=== PATIENT | female | born 1995 | race African-American/Black ===

== ENCOUNTER 2018-10-05 18:44 | Emergency (ER) | payer OTHER ==
[2018-10-05 18:53] VITALS: RESP 18
[2018-10-05] MEDS ORDERED: SODIUM CHLORIDE 0.9% 1,000 ML IV ONE (18:55)
--- NOTE | 2018-10-05 19:10 | ED ---
Female Urogenital HPI - General Chief complaint: Vaginal Bleeding Stated complaint: early /vaginal bleeding Time Seen by Provider: 10/05/18 18:54 Source: patient Mode of arrival: ambulatory Limitations: no limitations - History of Present Illness Initial comments: 22-year-old female denies past medical history presents today for chief complaint of vaginal bleeding in . Patient is . Patient states her last menstrual period was 08/19/2018. Patient states that she had multiple at home positive test. Patient states she began experiencing vaginal bleeding about hour prior to arrival. Patient states she has had mild cramping like a menstruation. No significant abdominal pain. She states her flow is about as heavy as menstruation. She denies any significant heavy bleeding. Patient denies any chest pain dyspnea, cold intolerance or heart palpitations. She denies vaginal discharge. Chills night sweats. Upon arrival patient appears well, no acute distress. Appearing well. VS WNL. - Related Data Home Medications Medication Instructions Recorded Confirmed Cephalexin [Keflex] 500 mg PO BID 10/05/18 10/05/18 Allergies Allergy/AdvReac Type Severity Reaction Status Date / Time No Known Allergies Allergy Verified 10/05/18 20:07 Review of Systems ROS Statement: Those systems with pertinent positive or pertinent negative responses have been documented in the HPI. ROS Other: All systems not noted in ROS Statement are negative. Past Medical History Past Medical History: No Reported History History of Any Multi-Drug Resistant Organisms: None Reported Past Surgical History: No Surgical Hx Reported Past Psychological History: No Psychological Hx Reported Smoking Status: Never smoker Past Alcohol Use History: None Reported Past Drug Use History: None Reported General Exam - General Exam Comments Initial Comments: General: The patient is awake and alert, in no distress, and does not appear acutely ill. Eye: Pupils are equal, round and reactive to light, extra-ocular movements are intact. No nystagmus. There is normal conjunctiva bilaterally. No signs of icterus. Ears, nose, mouth and throat: There are moist mucous membranes and no oral lesi ons. Neck: The neck is supple, there is no tenderness or JVD. Cardiovascular: There is a regular rate and rhythm. No murmur, rub or gallop is appreciated. Respiratory: Lungs are clear to auscultation, respirations are non-labored, breath sounds are equal. No wheezes, stridor, rales, or rhonchi. Gastrointestinal: Soft, non-distended, non-tender abdomen without masses or organomegaly noted. There is no rebound or guarding present. No CVA tenderness. Bowel sounds are unremarkable. Pelvic: [place] and well rugated vaginal mucosa. Normal female hair pattern with no external lesions. Cervical eyes closed. Vaginal vault, dark red, small clots present. No adnexal or cervical motion tenderness. Musculoskeletal: Normal ROM, no tenderness. Strength 5/5. Sensation intact. Pulses equal bilaterally 2+. Neurological: A&O x 3. CN II-XII intact, There are no obvious motor or sensory deficits. Coordination appears grossly intact. Speech is normal. Skin: Skin is warm and dry and no rashes or lesions are noted. Psychiatric: Cooperative, appropriate mood & affect, normal judgment. Limitations: no limitations Course Vital Signs 10/05/18 10/05/18 18:51 21:13 Temperature 98.4 F 97.9 F Pulse Rate 83 78 Respiratory 18 18 Rate Blood Pressure 133/77 138/70 O2 Sat by Pulse 99 Oximetry Medical Decision Making - Medical Decision Making Well-appearing 22-year-old female. Patient had a positive test 3 days prior. Last. As mentioned previously. Patient hCG serum around 1000. Consistent with early dependency however given the amount of vaginal bleeding I have high suspicion for spontaneous . Patient is no adnexal or cervical motion tenderness. Patient denies any right-sided or left-sided tenderness. She states she feels [facility]. Cramping. Patient appears comfortable no signs of acute distress. Some revealed no viable intrauterine . There was thickened endometrium. Patient was given prescriptions for serial hCGs to trend downward for possibility of ectopic as we cannot rule out given no ja dence of viable intrauterine with a hCG elevation. I discussed clinical suspicion with patient as well as concern for ectopic and the reasoning behind serial hCG. Although I do have high clinical suspicion of spontaneous . Patient does not require RHogam. Her discussed the case obtain provider, he is agreeable patient plan of care as well as discharge. Patient was given [employer] follow-up. Return parameters including immediate return for increasing pain, persistent bleeding or any other concerning signs or symptoms were discussed with patient at length verbalized understanding. Patient discharged appearing well hemodynamically stable. - Lab Data Result diagrams: 10/05/18 19:24 10/05/18 19:24 Lab Results 10/05/18 10/05/18 10/05/18 Range/Units 19:24 19:24 19:24 WBC 7.2 (3.8-10.6) k/uL RBC 4.23 (3.80-5.40) m/uL Hgb 13.3 (11.4-16.0) gm/dL Hct 40.4 (34.0-46.0) % MCV 95.5 (80.0-100.0) fL MCH 31.4 (25.0-35.0) pg MCHC 32.8 (31.0-37.0) g/dL RDW 13.3 (11.5-15.5) % Plt Count 360 (150-450) k/uL Neutrophils % 51 % Lymphocytes % 39 % Monocytes % 6 % Eosinophils % 2 % Basophils % 0 % Neutrophils # 3.6 (1.3-7.7) k/uL Lymphocytes # 2.8 (1.0-4.8) k/uL Monocytes # 0.4 (0-1.0) k/uL Eosinophils # 0.1 (0-0.7) k/uL Basophils # 0.0 (0-0.2) k/uL Sodium 139 (137-145) mmol/L Potassium 4.2 (3.5-5.1) mmol/L Chloride 105 (98-107) mmol/L Carbon Dioxide 24 (22-30) mmol/L Anion Gap 10 mmol/L BUN 14 (7-17) mg/dL Creatinine 0.82 (0.52-1.04) mg/dL Est GFR (CKD-EPI)AfAm >90 (>60 ml/min/1.73 sqM) Est GFR (CKD-EPI)NonAf >90 (>60 ml/min/1.73 sqM) Glucose 89 (74-99) mg/dL Calcium 9.5 (8.4-10.2) mg/dL Total Bilirubin 0.4 (0.2-1.3) mg/dL AST 19 (14-36) U/L ALT 25 (9-52) U/L Alkaline Phosphatase 76 (38-126) U/L Total Protein 8.5 H (6.3-8.2) g/dL Albumin 4.7 (3.5-5.0) g/dL HCG, Quant 1016.5 mIU/mL Trichomonas Ag (Rapid) (Negative) Blood Type AB Positive Blood Type Recheck [facility] ONLY 10/05/18 Range/Units 19:30 WBC (3.8-10.6) k/uL RBC (3.80-5.40) m/uL Hgb (11.4-16.0) gm/dL Hct (34.0-46.0) % MCV (80.0-100.0) fL MCH (25.0-35.0) pg MCHC (31.0-37.0) g/dL RDW (11.5-15.5) % Plt Count (150-450) k/uL Neutrophils % % Lymphocytes % % Monocytes % % Eosinophils % % Basophils % % Neutrophils # (1.3-7.7) k/uL Lymphocytes # (1.0-4.8) k/uL Monocytes # (0-1.0) k/uL Eosinophils # (0-0.7) k/uL Basophils # (0-0.2) k/uL Sodium (137-145) mmol/L Potassium (3.5-5.1) mmol/L Chloride (98-107) mmol/L Carbon Dioxide (22-30) mmol/L Anion Gap mmol/L BUN (7-17) mg/dL Creatinine (0.52-1.04) mg/dL Est GFR (CKD-EPI)AfAm (>60 ml/min/1.73 sqM) Est GFR (CKD-EPI)NonAf (>60 ml/min/1.73 sqM) Glucose (74-99) mg/dL Calcium (8.4-10.2) mg/dL Total Bilirubin (0.2-1.3) mg/dL AST (14-36) U/L ALT (9-52) U/L Alkaline Phosphatase (38-126) U/L Total Protein (6.3-8.2) g/dL Albumin (3.5-5.0) g/dL HCG, Quant mIU/mL Trichomonas Ag (Rapid) Negative (Negative) Blood Type Blood Type Recheck Disposition Clinical Impression: Miscarriage Disposition: HOME SELF-CARE Condition: Good Instructions (If sedation given, give patient instructions): Miscarriage (ED) Additional Instructions: Please use medication as discussed. Please follow-up with OBGYN in next week. Please repeat HCG in 48 hours. Please return to emergency room if the symptoms increase or worsen or for any other concerns, including pain increasing/one sided pain, persistent bleeding. Is patient prescribed a controlled substance at d/c from ED?: No Referrals: None,Stated [Primary Care Provider] - 1-2 days Zulema Escobedo MD [STAFF PHYSICIAN] - 1-2 days Time of Disposition: 20:36
[2018-10-05 19:44] LABS: Basophils % (A) 0 %; Eosinophils # (A) 0.1 k/uL (0-0.7); Eosinophils % (A) 2 %; HCT 40.4 % (34.0-46.0); HGB 13.3 gm/dL (11.4-16.0); Lymphocytes # (A) 2.8 k/uL (1.0-4.8); Lymphocytes % (A) 39 %; MCH 31.4 pg (25.0-35.0); MCHC 32.8 g/dL (31.0-37.0); MCV 95.5 fL (80.0-100.0); Mean Platelet Volume 7.1; Monocytes # (A) 0.4 k/uL (0-1.0); Monocytes % (A) 6 %; Neutrophils # (A) 3.6 k/uL (1.3-7.7); Neutrophils % (A) 51 %; Platelet Count 360 k/uL (150-450); RBC 4.23 m/uL (3.80-5.40); RDW 13.3 % (11.5-15.5); WBC 7.2 k/uL (3.8-10.6)
[2018-10-05 19:55] LABS: ALT 25 U/L (9-52); AST 19 U/L (14-36); Albumin 4.7 g/dL (3.5-5.0); Alkaline Phosphatase 76 U/L (38-126); Anion Gap 10 mmol/L; Blood Urea Nitrogen 14 mg/dL (7-17); Calcium 9.5 mg/dL (8.4-10.2); Carbon Dioxide 24 mmol/L (22-30); Chloride 105 mmol/L (98-107); Glucose 89 mg/dL (74-99); Potassium 4.2 mmol/L (3.5-5.1); Sodium 139 mmol/L (137-145); Total Bilirubin 0.4 mg/dL (0.2-1.3); Total Protein 8.5 g/dL (6.3-8.2)
[2018-10-05 20:11] LABS: HCG,Quantitative Serum 1016.5 mIU/mL
--- NOTE | 2018-10-05 20:25 | US ---
EXAMINATION TYPE: Transabdominal DATE OF EXAM: 10/05/2018 8:10 PM COMPARISON: NONE CLINICAL HISTORY: bleeding in . EC patient with vaginal bleeding today with EXAM PERFORMED: Transvaginal (TV) and Transabdominal (TA). EXAM MEASUREMENTS: GESTATIONAL AGE / DATING Physician Established: Not yet established Dates by LMP: 08/19/2018 (6 weeks/5 days) EDC: 05/26/2019 Dates by First Scan: No previous. Dates by Current Scan for: No IUP seen at this time MATERNAL ANATOMY Uterus: 6.6 x 4.1 x 3.3cm Endometrium: thickened especially at [place] Right Ovary: 2.5 x 1.4 x 1.7cm Left Ovary: 2.2 x 1.2 x 0.9cm Post CDS / Adnexa: wnl Presence of free fluid: no Presence of corpus luteal cyst: not identified GESTATION / SURVEY IUP: No IUP seen at this time Date of LMP: 08/19/2018 Beta HcG (if available): 1016.5 quantitative No IUP is seen; no ectopic is seen. IMPRESSION: No evidence for intrauterine at this time. Correlate clinically with serial beta hCG and/or ultrasound.
[2018-10-05 21:15] VITALS: BP 138/70; PULSE 78; TEMP 97.9
[2018-10-07 13:27] LABS: C. trachomatis,PCR Negative (Neg,Equiv); Chlamydia trachomatis Source Vagina
[2018-10-07 13:36] LABS: N. gonorrhoeae,PCR Negative (Neg,Equiv); Neisseria Source Vagina
== END 2018-10-05 21:15 | disposition home or self-care (01) ==
LOC: EC 18:44
DX: O03.9 Complete or unspecified spontaneous abortion without complication (principal)
CPT/HCPCS: 36415; 76801; 76817; 80053; 84702; 85025; 86900; 86901; 87491; 87591; 87808; 96360; 99284

== ENCOUNTER → 2018-10-08 | Outpatient (CLI) | payer SELFPAY | LOC: LABWHC1 11:19 | PROVIDERS: ATTEND Physician Assistant Medical | DX: O03.9 Complete or unspecified spontaneous abortion without complication (principal) | CPT/HCPCS: 36415; 84702 ==

== ENCOUNTER → 2018-10-10 | Outpatient (CLI) | payer SELFPAY | END | disposition home or self-care (01) | LOC: LABWHC1 09:53 | PROVIDERS: ATTEND Physician Assistant Medical | DX: O03.9 Complete or unspecified spontaneous abortion without complication (principal) | CPT/HCPCS: 36415; 84702 ==